=== PATIENT | female | born 1950 | race Caucasian/White ===

== ENCOUNTER 2020-04-27 18:03 | Emergency (ER) | payer MEDICARE, OTHER ==
[2020-04-27 18:30] VITALS: O2SAT 97
--- NOTE | 2020-04-27 19:01 | ERPHSYRPT ---
- History of Present Illness Time Seen by Provider: 04/27/20 18:33 Source: patient Exam Limitations: no limitations Patient Subjective Stated Complaint: Right leg pain Triage Nursing Assessment: Patient brought back to ED via w/c and transferred se to bed. Patient A+O X 3. Patient's skin pink, warm and dry. Patient complains of small area to right lower leg that is open. Patient states she noticed yellow drainage with foul odor today. Patient broke her leg 3 years ago and had to have surgery with pins and rods. Small puncture wound noted to right lower leg in scar with small amount of yellow drainage. Patient's complains of intermittent s harp pain when moving 5/10. 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 Patient reports she always have a small hole since the surgery was done with occasional minimal discharge but for the last few days she is having increase yellow foul-smelling discharge. Denies any swelling in the leg. No fever or chills, redness of the leg reported. She always have pain with ambulation which is not any worse than usual. Occurred: last week Severity of Pain-Max: mild Severity of Pain-Current: mild Lower Extremities Pain: leg: right Modifying Factors: Improves With: nothing Allergies/Adverse Reactions: niacin Allergy (Verified 04/27/20 18:20) pregabalin [From Lyrica] Allergy (Verified 04/27/20 18:20) Home Medications: Aspirin 325 mg PO DAILY 08/21/16 [History] Bethanechol Chloride 10 mg PO TID 08/21/16 [History] Bisacodyl 10 mg [Dulcolax 10 MG SUPP] 10 mg RC DAILY PRN 08/21/16 [History] Cholecalciferol (Vitamin D3) [Vitamin D3] 2,000 unit PO DAILY 08/21/16 [History] Docusate Sodium [Colace] 200 mg PO HS 08/21/16 [History] Enoxaparin Sodium [Lovenox] 40 mg SQ DAILY 08/21/16 [History] Fluoxetine HCl [Prozac] 20 mg PO DAILY 08/21/16 [History] Gabapentin [Neurontin] 600 mg PO HS 08/21/16 [History] Hydrocodone Bit/Acetaminophen [[place] 5/325Mg] 1 each PO Q4HPRN PRN 08/21/16 [History] Insulin Aspart [NovoLOG Insulin] 55 unit SQ TID 08/21/16 [History] Insulin Aspart [NovoLOG Insulin] 100 unit SQ DAILY 08/21/16 [History] Insulin Glargine,Hum.rec.anlog [Toujeo Solostar] 14 unit SQ DAILY 08/21/16 [History] Levothyroxine Sodium 75 Mcg [Synthroid 75 Mcg] 75 mcg PO DAILY 08/21/16 [ History] Metoprolol Succinate 50 mg [Toprol Xl 50 MG] 50 mg PO DAILY 08/21/16 [History] Polyethylene Glycol 3350 17 gm [Miralax Powder 17GM PACKET] 17 gm PO DAILY 08/21/16 [History] Hx Tetanus, Diphtheria Vaccination/Date Given: Yes Hx Influenza Vaccination/Date Given: Yes Hx Pneumococcal Vaccination/Date Given: Yes Immunizations Up to Date: Yes Travel Risk - International Travel Have you traveled outside of the country in past 3 weeks: No - Coronavirus Screening Are you exhibiting any of the following symptoms?: No Close contact with a COVID-19 positive Pt in past 14-21 Days: No - Review of Systems Constitutional: No Symptoms Eyes: No Symptoms Ears, Nose, & Throat: No Symptoms Respiratory: No Symptoms Cardiac: No Symptoms Abdominal/Gastrointestinal: No Symptoms Genitourinary Symptoms: No Symptoms Musculoskeletal: Deformity Skin: Skin Lesions Neurological: No Symptoms Psychological: No Symptoms Endocrine: No Symptoms Hematologic/Lymphatic: No Symptoms Immunological/Allergic: No Symptoms - Past Medical History Pertinent Past Medical History: Yes Neurological History: Peripheral Neuropathy Cardiac History: Arrhythmia, Coronary Artery Disease, Deep Vein Thrombosis, High Cholesterol, Hypertension, Myocardial Infarction ([place]) Endocrine Medical History: Diabetes Type II, Hyperthyroidism - Past Surgical History Past Surgical History: Yes Cardiac: CABG Musculoskeletal: Orthopedic Surgery Other Surgical History: left ORIF - right ORIF - Social History Smoking Status: Never smoker Exposure to second hand smoke: No Drug Use: none Patient Lives Alone: No - Female History Hx Now: No - Nursing Vital Signs Nursing Vital Signs: Initial Vital Signs Temperature 97.9 F 04/27/20 18:21 Pulse Rate 85 04/27/20 18:21 Respiratory Rate 18 04/27/20 18:21 Blood Pressure 154/70 04/27/20 18:21 O2 Sat by Pulse Oximetry 97 04/27/20 18:21 Pain Scale Pain Intensity 0 - Physical Exam General Appearance: no apparent distress Eyes, Ears, Nose, Throat Exam: normal ENT inspection, pharynx normal Neck Exam: normal inspection, supple, full range of motion Cardiovascular/Respiratory Exam: normal breath sounds, regular rate/rhythm Back Exam: normal inspection Legs Exam: right leg: deformity (Lower leg), swelling (Minimal swelling with a small fold with pus discharge applying pressure.) Neuro/Tendon Exam: normal sensation, normal motor functions Mental Status Exam: alert, oriented x 3, cooperative Skin Exam: normal color SpO2 Interpretation: normal SpO2: 97 O2 Delivery: Room Air Ordered Tests: Active Orders 24 hr Category Date Time Status LOWER EXTREMITY WO CONTRAST [CT] Stat Exams 04/27/20 18:45 Completed Medication Summary Discontinued Medications Generic Name Dose Route Start Last Admin Trade Name Mylesq PRN Reason Stop Dose Admin Cephalexin HCl 500 mg 04/27/20 19:29 04/27/20 19:31 Keflex 500 Mg PO 04/27/20 19:30 500 mg STAT ONE Administration Cephalexin HCl Confirm 04/27/20 19:31 Keflex 500 Mg Administered 04/27/20 19:32 Dose 500 mg .ROUTE .STK-MED ONE - Progress Progress: unchanged Progress Note: 04/27/20 21:55 Ruled out osteomyelitis. It seems to be chronic wound/ulcer with discharge. Recommended Keflex and outpatient primary care/orthopedic surgery follow-up. Counseled pt/family regarding: diagnosis, need for follow-up, rad results - Departure Departure Disposition: Home Clinical Impression: Leg wound, right Qualifiers: Encounter type: initial encounter Qualified Code(s): S81.801A - Unspecified open wound, right lower leg, initial encounter Condition: Stable Critical Care Time: No Referrals: TUNDE CUELLAR [ACTIVE STAFF] - Follow Up with PCP/3 days Instructions: Wound Care (DC) Additional Instructions: Keep it clean. Follow-up with your primary care and orthopedic surgeon for reevaluation. Return to ER for increased discharge, swelling, redness, fever or chills. Prescriptions: Cephalexin Mh 500 mg [Keflex 500 mg] 500 mg PO TID #21 capsule
[2020-04-27] MEDS ORDERED: KEFLEX 500 MG PO ONE (19:29)
[2020-04-27] MEDS ORDERED: KEFLEX 500 MG ONE (19:31)
[2020-04-27 19:35] VITALS: BP 164/87; PULSE 95
--- NOTE | 2020-04-27 21:28 | XRAY ---
Indication: Distal tibia/fibula edema and fluid. Patient reports ankle fracture with fixation. Multiple contiguous axial images obtained through the left lower leg without contrast as ordered. Two-dimensional sagittal and coronal reformatted images obtained. Comparison: None Osseous structures are mildly demineralized. Old distal tibia/fibula shaft fractures with mild valgus angulation and intact fibula fixation plate/screws. No acute fracture, suspicious for lesions, or osseous destructive process. Mild medial knee joint space narrowing with small nonspecific effusion. Small posterior/plantar heel spurs. Moderate scattered calcifications seen of the popliteal artery and trifurcation vessels. Remaining noncontrasted soft tissues are unremarkable. Impression: 1. Old angulated distal fibula/tibia shaft fractures with intact fixation hardware. 2. Osteopenia, knee degenerative arthropathy, heel spurs, and scattered arteriosclerotic disease. 3. Remaining CT left lower leg without contrast exam is negative. Comment: Preliminary interpretation was made by [facility]. No critical discrepancy.
== END 2020-04-27 19:38 | disposition home or self-care (01) ==
LOC: ED 18:03
DX: S81.801A Unspecified open wound, right lower leg, initial encounter (principal); Z98.890 Other specified postprocedural states; Z79.899 Other long term (current) drug therapy; G62.9 Polyneuropathy, unspecified; I25.10 Atherosclerotic heart disease of native coronary artery without angina pectoris; E78.00 Pure hypercholesterolemia, unspecified; E11.9 Type 2 diabetes mellitus without complications; E05.90 Thyrotoxicosis, unspecified without thyrotoxic crisis or storm
CPT/HCPCS: 73700; 99283; A9270-GY